=== PATIENT | female | born 1985 | race Caucasian/White ===

== ENCOUNTER 2018-03-16 03:38 | Emergency (ER) | payer SELFPAY, OTHER ==
[2018-03-16] MEDS: DIPHENHYDRAMINE 50 MG INJ IV (04:00)
[2018-03-16] MEDS: EPINEPHrine 1 MG INJ IM (04:02)
[2018-03-16] MEDS: FAMOTIDINE 20 MG TAB PO (04:02)
[2018-03-16] MEDS: predniSONE 20 MG TAB PO (04:02)
== END 2018-03-16 06:16 | disposition home or self-care (01) ==
LOC: E/R 03:38
DX: R21 Rash and other nonspecific skin eruption (principal); E11.9 Type 2 diabetes mellitus without complications; Z87.891 Personal history of nicotine dependence
CPT/HCPCS: 81025; 96372; 96374; 99284-25